=== PATIENT | female | born 1960 | race Asian ===

== ENCOUNTER 2025-07-05 14:15 | Emergency (ER) | payer OTHER ==
[~2025-07-05] VITALS: Ht 160 cm; Wt 50.8 kg
[2025-07-05] MEDS ORDERED: Acetaminophen/Oxycodone 5 MG/325 MG TABLET PO ONE (14:40)
[2025-07-05] MEDS ORDERED: PERCOCET 5-3251 EACH PO (15:07)
== END 2025-07-05 15:20 | disposition home or self-care (01) ==
LOC: ED 14:15
DX: S92.502A Displaced unspecified fracture of left lesser toe(s), initial encounter for closed fracture (principal); F17.210 Nicotine dependence, cigarettes, uncomplicated; Z88.6 Allergy status to analgesic agent; Z90.49 Acquired absence of other specified parts of digestive tract; W20.8XXA Other cause of strike by thrown, projected or falling object, initial encounter; Y93.89 Activity, other specified; Y92.89 Other specified places as the place of occurrence of the external cause; Y99.8 Other external cause status

== ENCOUNTER 2025-09-13 22:07 | Emergency (ER) | payer OTHER ==
[~2025-09-13] VITALS: Ht 162.5 cm; Wt 52.2 kg
[~2025-09-13 22:07] MED LIST: PERCOCET 5-3251 EACH PO
[2025-09-13] MEDS ORDERED: SODIUM CHLORIDE 0.9% 1,000 ML IV ONE (23:00)
[2025-09-13] MEDS ORDERED: Ondansetron Hydrochloride 4 MG/2 ML VIAL IV ONE (23:00)
[2025-09-13 23:15] LABS: BASO # 0.1 10*3/uL (0.0-0.1); BASO % 0.7 % (0.0-1.0); EOS # 0.3 10*3/uL (0.0-0.4); EOS % 2.0 % (1.0-4.0); MEAN CELL VOLUME 89.2 fl (81.0-99.0); MEAN CORPUSCULAR HGB 28.6 pg (27.0-31.0); MEAN PLATELET VOLUME 10.5 fl (9.6-12.3); MONO # 0.9 10*3/uL (0.1-1.0); MONO % 6.3 % (3.0-9.0); NEUT # 9.2 10*3/uL (2.3-7.9); NEUT % 67.3 % (47.0-73.0); NUCLEATED RED BLOOD CELL 0.0 % (0.0-0.0); NUCLEATED RED BLOOD CELL 0.0 10*3/uL (0.0-0.0); PLATELET COUNT AUTOMATED 293 10*3/uL (130-400); RED CELL DISTRI WIDTH 12.5 % (0-14.5)
[2025-09-13 23:36] LABS: BUN 26.0 mg/dl (9-23); SGPT/ALT 13.0 U/L (5-49)
[2025-09-14] MEDS ORDERED: Iodixanol 320 100 ML VIAL IV ONE (02:20)
[2025-09-14] MEDS ORDERED: SODIUM CHLORIDE 0.9% 100 ML BAG IV ONE (02:20)
[2025-09-14 02:23] LABS: BILIRUBIN Negative (Negative); BLOOD Negative (Negative); CLARITY Clear (Clear); COLOR Yellow (Yellow); KETONE Negative (Negative); LEUKO ESTERASE Negative (Negative); NITRITE Negative (Negative); PH 5.5 (4.5-8.0); SPECIFIC GRAVITY 1.015 (1.001-1.030); UROBILINOGEN 0.2 E.U./dl (0.0-1.0)
[2025-09-14 02:32] LABS: WBC 0-2 wbc/hpf (0-5)
[2025-09-14] MEDS ORDERED: SODIUM CHLORIDE 0.9% 100 ML IV ONE (02:46)
[2025-09-14] MEDS ORDERED: Iodixanol 320 100 ML VIAL ONE (02:46)
[2025-09-14] MEDS ORDERED: SODIUM CHLORIDE 0.9% 1,000 ML IV ONE (02:55)
[2025-09-14] MEDS ORDERED: hydrALAZINE hydrochloride 20 MG/ML VIAL IV ONE (03:25)
[2025-09-14] MEDS ORDERED: HYDROXYZINE PAM25 M1 PO (04:44)
[2025-09-14] MEDS ORDERED: GOOD NEIGHBOR L10 MG PO (04:45)
[2025-09-14] MEDS ORDERED: VENLAFAXINE HY150 M2 PO (04:45)
== END 2025-09-14 08:21 | disposition short-term general hospital (02) ==
LOC: ED 22:07
PROVIDERS: Emergency Medicine
DX: D73.5 Infarction of spleen (principal); J44.9 Chronic obstructive pulmonary disease, unspecified; F17.210 Nicotine dependence, cigarettes, uncomplicated; Z98.890 Other specified postprocedural states; Z90.49 Acquired absence of other specified parts of digestive tract; Z88.6 Allergy status to analgesic agent